=== PATIENT | female | born 1980 | race Caucasian/White ===

== ENCOUNTER 2017-07-12 14:04 | Inpatient (IN) | payer BC ==
[2017-07-12] VITALS (9 sets, daily range): BP systolic 123–148; BP diastolic 62–85; PULSE 106–129; TEMP 97.7–102
[~2017-07-12] VITALS: Ht 157.5 cm; Wt 104.5 kg
[2017-07-13] VITALS (7 sets, daily range): BP systolic 119–158; BP diastolic 62–88; PULSE 108–120; TEMP 98.4–100.9
[2017-07-14 04:36] VITALS: BP 145/83; PULSE 118; TEMP 98.1
[2017-07-14 09:30] VITALS: BP 128/70; PULSE 82; TEMP 98.6
[2017-07-14 13:30] VITALS: BP 126/60; PULSE 90; TEMP 100.1
[2017-07-14 17:35] VITALS: BP 126/72; PULSE 90; TEMP 100
[2017-07-14 19:20] VITALS: BP 138/83; PULSE 102; TEMP 98.8
[2017-07-14 23:45] VITALS: BP 136/80; PULSE 100; TEMP 99
[2017-07-15 08:15] VITALS: BP 128/62; PULSE 88; TEMP 99.3
== END 2017-07-15 14:05 | disposition home or self-care (01) | DRG 669 ==
LOC: SDCO 14:04 → OB 18:05 → SDCO 18:45 → OB 19:01 → SDCO 19:01 → OB 19:02 → SDCO 19:02 → OB 07-14 12:01
PROVIDERS: Urology
PROC: 0TC68ZZ Extirpation of Matter from Right Ureter, Via Natural or Artificial Opening Endoscopic (ICD-10-PCS; principal; 2017-07-12 16:30)
PROC: 0T768DZ Dilation of Right Ureter with Intraluminal Device, Via Natural or Artificial Opening Endoscopic (ICD-10-PCS; 2017-07-12 16:30)
PROC: BT1D1ZZ Fluoroscopy of Right Kidney, Ureter and Bladder using Low Osmolar Contrast (ICD-10-PCS; 2017-07-12 16:30)
DX: N20.1 Calculus of ureter (principal); N39.0 Urinary tract infection, site not specified; I10 Essential (primary) hypertension; Z87.891 Personal history of nicotine dependence; R00.0 Tachycardia, unspecified
CPT/HCPCS: OP; A4314; A9284; C1769; C2617; G0378; J0690; J0696; J1100; J2405; J2704; J3010; J7030; J7040; J7120; Q9967

== ENCOUNTER 2020-04-28 16:30 | Observation (INO) | payer SELFPAY ==
[~2020-04-28] VITALS: Ht 154.9 cm; Wt 93.6 kg
[2020-04-28] VITALS (9 sets, daily range): BP systolic 113–157; BP diastolic 59–95; PULSE 87–120; TEMP 99.3–99.5
--- NOTE | 2020-04-28 12:07 | NUR ---
Morpine 3mg IVSP and Tordal 30mg IV given per PRN orders for c/o pain. Will continue to monitor. Anthony PINO and David Thomas CRNA into see pt. Call light within reach.
--- NOTE | 2020-04-28 12:10 | NUR ---
Patient is alert and oriented. She refuses a test, stating that she is not sexually active at this time.
--- NOTE | 2020-04-28 13:57 | NUR ---
Pt up to restroom with stand by assist. Pt voids without difficulties. Pt reports pain "is so much better." Pt denies nausea. Pt back to room. Will continue to monitor. Call light within reach.
--- NOTE | 2020-04-28 15:53 | NUR ---
Pt resting in bed. Denies pain or nausea. Pt up to restroom with stand by assistance. Pt voids without difficulties. pt back to bed. Will continue to monitor. Report given to Ashly OTTO.
[2020-04-28] MEDS ORDERED: PYRIDIUM 100MG100 MG PO (17:33)
[2020-04-28] MEDS ORDERED: NORCO 325 MG-51 TAB PO (17:33)
--- NOTE | 2020-04-28 18:30 | NUR ---
1830 UP TO BR WITH ASSIST AND VOIDED 100CC CONCENTRATED URINE. IV FLUIDS CONTINUE. REG DIET TAKEN
[2020-04-29 00:30] VITALS: BP 118/56; PULSE 106; TEMP 99.6
[2020-04-29 04:35] VITALS: BP 122/65; PULSE 102; TEMP 98.7
[2020-04-29 07:20] VITALS: BP 142/81; PULSE 106; TEMP 98.7
--- NOTE | 2020-04-29 07:20 | NUR ---
Pt up to the bathroom and moving around room on her own. Able to urinate with minimal pain and burning. Urine yellow, concentrated, pt feels like her urine is gritty. Vital signs and assessments completed. Pt denies needs at this time.
[2020-04-29 12:00] VITALS: BP 141/79; PULSE 101; TEMP 100.1
--- NOTE | 2020-04-29 13:00 | NUR ---
Pt has been resting, denies needs, some burning and frequency with urination. Dr. Major at bedside and aware of temp 100.1, orders for her to have Tylenol 650 mg in addition to her Percocet. Orders for her to be discharged, pt will not have a ride home until 1729.
--- NOTE | 2020-04-29 16:00 | NUR ---
IV discontinued per orders. Discharge instructions given.
[2020-04-29 17:00] VITALS: TEMP 98.8
--- NOTE | 2020-04-29 17:55 | NUR ---
Pt ambulates out to private car and left in care of her niece.
== END 2020-04-29 17:55 | disposition home or self-care (01) ==
LOC: SDCO 16:30 → OB 16:30 → SDCO 18:00 → OB 18:00 → SDCO 04-29 11:27 → OB 04-29 11:28
PROVIDERS: ADMIT Urology
DX: N13.6 Pyonephrosis (principal); Z79.899 Other long term (current) drug therapy; Z87.891 Personal history of nicotine dependence; I10 Essential (primary) hypertension
CPT/HCPCS: OP; C1769; C2617; G0378; J0690; J1885; J2270; J2405; J2704; J3010; J7120; Q9967

== ENCOUNTER → 2021-02-23 | Outpatient (CLI) | payer BC ==
[~2021-02-23] MED LIST: NORCO 325 MG-51 TAB PO; PYRIDIUM 100MG100 MG PO
== END ==
LOC: COL.RAD 11:35
DX: N93.9 Abnormal uterine and vaginal bleeding, unspecified (principal)

== ENCOUNTER → 2023-11-15 | Outpatient (CLI) | payer BC, OTHER | LOC: COL.LAB 15:00 | DX: M79.89 Other specified soft tissue disorders (principal) ==

== ENCOUNTER → 2024-02-10 | Outpatient (CLI) | payer BC | LOC: MC.RAD 09:45 | DX: Z12.31 Encounter for screening mammogram for malignant neoplasm of breast (principal); N64.89 Other specified disorders of breast ==